=== PATIENT | female | born 1985 | race Hispanic/Latino ===

== ENCOUNTER 2018-08-12 10:45 | Emergency (ER) | payer BC, OTHER ==
--- NOTE | 2018-08-12 12:08 | ULT ---
SOFT TISSUE ULTRASOUND OF PELVIS: Date: 08/12/18 INDICATION: Evaluate for vaginal foreign body. FINDINGS: Within the imaged vaginal vault, there is mixed echogenicity with focus of increased echogenicity and shadowing. This structure is ill-defined. The adjacent urinary bladder is partially seen. IMPRESSION: Heterogeneous echotexture with increased echogenicity and shadowing at the level of the vaginal vault . Given clinical history, this does indicate a foreign body. The increased echogenicity could relate to air with associated shadowing, or, alternatively, an opaque structure with posterior acoustic shad owing. Recommend correlation with physical exam for further characterization. POS: [facility]
[2018-08-14 23:51] LABS: Chlamydia by PCR Not Detected (NotDetected); GC by PCR Not Detected (NotDetected)
== END 2018-08-12 13:11 | disposition home or self-care (01) ==
LOC: ERS 10:45
DX: T19.2XXA Foreign body in vulva and vagina, initial encounter (principal)
CPT/HCPCS: 76857; 87480; 87491; 87510; 87591; 87660